=== PATIENT | male | born 1940 | race African-American/Black ===

== ENCOUNTER 2018-05-16 10:02 | Inpatient (IN) | payer MEDICARE, BC ==
[~2018-05-16] VITALS: Ht 175.3 cm; Wt 88.0 kg
[2018-05-16] MEDS ORDERED: SODIUM CHLORIDE 0.9% 500 ML IV ONE (10:41)
[2018-05-16] MEDS ORDERED: ASPIRIN 81MG TABLET PO ONE (10:45)
[2018-05-16 11:34] LABS: BASOPHILS % 0.7 % (0.0-2.0); EOSINOPHILS % 4.5 % (0.0-5.0); HEMOGLOBIN. 13.1 g/dL (14.0-18.0); LYMPHOCYTES % 29.4 % (20.0-50.0); MEAN CORPUSCULAR HEMOGLOBIN 28.1 pg (28.0-32.0); MEAN CORPUSCULAR VOLUME 85.6 fL (80.0-94.0); MONOCYTES % 8.9 % (2.0-8.0); NEUTROPHILS % 56.5 % (40.0-76.0); RED BLOOD CELL COUNT 4.67 mill/uL (4.7-6.1); RED CELL DISTRIBUTION WIDTH 14.6 % (11.6-14.6)
[2018-05-16 11:47] LABS: CHLORIDE 108 mEq/L (98-107)
[2018-05-16 11:48] LABS: D-DIMER 1.26 mg/L FEU (<0.50); INR 1.1; PARTIAL THROMBOPLASTIN TIME 25.9 sec (23.4-31.0); PROTHROMBIN TIME 10.6 sec (9.1-11.1)
[2018-05-16 11:53] LABS: CREATINE KINASE 550 IU/L (39-308)
[2018-05-16 11:56] LABS: CREATINE KINASE MB FRACTION 4.8 ng/mL (0.5-3.6)
[2018-05-16 12:13] LABS: PLATELET ESTIMATE DECREASED
[2018-05-16 12:14] LABS: MEAN PLATELET VOLUME 8.7 fl (7.4-10.4); PLATELET 114 x1000/uL (130-400)
[2018-05-16] MEDS ORDERED: ONDANSETRON HCL 4MG/2ML INJ IV PRN (13:15)
[2018-05-16] MEDS ORDERED: IPRATROPIUM/ALBUTEROL 0.5-3(2.5)MG/3ML NEB HHN PRN (13:15)
[2018-05-16] MEDS ORDERED: ACETAMINOPHEN 325MG TABLET PO PRN (13:15)
[2018-05-16] MEDS ORDERED: HYDROCODONE/ACETAMINOPHEN 5/325MG TABLET PO PRN (13:15)
[2018-05-16] MEDS ORDERED: HYDRALAZINE 20MG/ML VIAL IV PRN (13:15)
[2018-05-16 20:30] VITALS: BP 112/59
[2018-05-16 20:47] VITALS: BP 112/59
[2018-05-16] MEDS ORDERED: SODIUM CHLORIDE 0.9% 1,000 ML IV SCH (22:30)
[2018-05-16 23:33] LABS: CREATINE KINASE 471 IU/L (39-308); CREATINE KINASE MB FRACTION 4.5 ng/mL (0.5-3.6)
[2018-05-16] MEDS ORDERED: ATOR40TA70 MT (23:38)
[2018-05-16] MEDS ORDERED: METO-396 MT (23:39)
[2018-05-16] MEDS ORDERED: AMLO10TA80 MT (23:39)
[2018-05-17] VITALS: BP 140/69
[2018-05-17 04:49] VITALS: BP 133/62
[2018-05-17 05:00] VITALS: BP 141/61
[2018-05-17 06:35] LABS: BASOPHILS % 0.4 % (0.0-2.0); EOSINOPHILS % 5.9 % (0.0-5.0); HEMATOCRIT. 36.9 % (42.0-52.0); HEMOGLOBIN. 12.1 g/dL (14.0-18.0); LYMPHOCYTES % 31.6 % (20.0-50.0); MEAN CORPUSCULAR HEMOGLOBIN 28.1 pg (28.0-32.0); MEAN CORPUSCULAR VOLUME 85.8 fL (80.0-94.0); MEAN PLATELET VOLUME 8.7 fl (7.4-10.4); MONOCYTES % 9.7 % (2.0-8.0); NEUTROPHILS % 52.4 % (40.0-76.0); PLATELET 127 x1000/uL (130-400); RED CELL DISTRIBUTION WIDTH 14.5 % (11.6-14.6)
[2018-05-17 08:00] VITALS: BP 144/82
[2018-05-17] MEDS ORDERED: LACTULOSE 20G/30ML UDC PO PRN (11:00)
[2018-05-17 12:56] VITALS: BP 144/82
== END 2018-05-17 13:33 | disposition home or self-care (01) | DRG 683 ==
LOC: ER 11:24 → 5WST 12:29 → EDBEDREQTM 12:32 → EDBEDREQ 12:32 → ENRESERV 18:59
PROVIDERS: ADMIT Internal Medicine; ATTEND Internal Medicine
DX: N17.9 Acute kidney failure, unspecified (principal); M62.82 Rhabdomyolysis; J98.11 Atelectasis; M94.0 Chondrocostal junction syndrome [Tietze]; F17.200 Nicotine dependence, unspecified, uncomplicated; I12.9 Hypertensive chronic kidney disease with stage 1 through stage 4 chronic kidney disease, or unspecified chronic kidney disease; R00.1 Bradycardia, unspecified; E87.8 Other disorders of electrolyte and fluid balance, not elsewhere classified; N18.9 Chronic kidney disease, unspecified; D64.9 Anemia, unspecified; K59.00 Constipation, unspecified; Z86.711 Personal history of pulmonary embolism
CPT/HCPCS: 36415; 71045; 78582; 80048; 80061; 82550; 82553; 83880; 84145; 84443; 84484; 85379; 93005; 93970; 96360; 99291; A9558; J7030; J7040